=== PATIENT | female | born 1950 | race Hispanic/Latino ===

== ENCOUNTER 2020-11-23 05:30 | Day surgery (SDC) | payer MEDICARE ==
[~2020-11-23] VITALS: Ht 157.5 cm; Wt 66.7 kg
[2020-11-23] VITALS (8 sets, daily range): BP systolic 100–155; BP diastolic 45–70
[2020-11-23] MEDS ORDERED: SODIUM CHLORIDE 0.9% 1000ML 1,000 ML IV ONE (06:19)
[2020-11-23] MEDS ORDERED: PROPOFOL 10 MG/ML 20ML VIAL IV ONE ×2 (06:48→07:33)
[2020-11-23] MEDS ORDERED: LIDOCAINE HCL 1% 20 ML VIAL ONE (06:48)
[2020-11-23] MEDS ORDERED: SUCCINYLCHOLINE 200MG/10ML SYR ONE (06:49)
[2020-11-23] MEDS ORDERED: METF-527 PO (06:52)
[2020-11-23] MEDS ORDERED: CARB15DR2 OP (06:52)
[2020-11-23] MEDS ORDERED: ENAL5TAB17 PO (06:52)
[2020-11-23] MEDS ORDERED: GABA-529 PO (06:52)
[2020-11-23] MEDS ORDERED: GLIM4TAB36 PO (06:52)
[2020-11-23] MEDS ORDERED: OMEP40CA13 PO (06:52)
[2020-11-23] MEDS ORDERED: CANA1TAB8 PO (06:52)
[2020-11-23] MEDS ORDERED: AEC81 PO (06:52)
[2020-11-23] MEDS ORDERED: ATOR20TA65 PO (06:52)
[2020-11-23] MEDS ORDERED: FURO40TA5 PO (06:52)
[2020-11-23] MEDS ORDERED: GLUCAGON 1MG KIT 1 MG ML ONE (07:37)
== END 2020-11-23 08:15 | disposition home or self-care (01) ==
LOC: ENDO 05:30 → DAH 05:30 → ENDO 08:15
PROVIDERS: ATTEND Internal Medicine Gastroenterology
DX: K31.7 Polyp of stomach and duodenum (principal); D12.6 Benign neoplasm of colon, unspecified; R94.5 Abnormal results of liver function studies; K80.20 Calculus of gallbladder without cholecystitis without obstruction; K76.0 Fatty (change of) liver, not elsewhere classified; K44.9 Diaphragmatic hernia without obstruction or gangrene; E11.9 Type 2 diabetes mellitus without complications; K21.9 Gastro-esophageal reflux disease without esophagitis; K29.70 Gastritis, unspecified, without bleeding; E78.00 Pure hypercholesterolemia, unspecified; F41.9 Anxiety disorder, unspecified; F32.9 Major depressive disorder, single episode, unspecified; Z90.710 Acquired absence of both cervix and uterus; Z79.84 Long term (current) use of oral hypoglycemic drugs; Z20.828 Contact with and (suspected) exposure to other viral communicable diseases; Z79.899 Other long term (current) drug therapy
CPT/HCPCS: 43251; 82948 ×2; 93005; A4215; A4221; A4222; A4223; A4606; A4620; A4649; A4663; C9803; J0330; J1610; J2704 ×2; J7030; U0003

== ENCOUNTER 2021-01-11 05:27 | Day surgery (SDC) | payer MEDICARE ==
[~2021-01-11] VITALS: Ht 154.9 cm; Wt 64.9 kg
[~2021-01-11 05:27] MED LIST: AEC81 PO; ATOR20TA65 PO; CANA1TAB8 PO; CARB15DR2 OP; ENAL5TAB17 PO; FURO40TA5 PO; GABA-529 PO; GLIM4TAB36 PO; INSLAN SQ; METF-527 PO; OMEP40CA21 PO; SODIUM CHLORIDE 0.9% 1000ML 1,000 ML IV ONE
[2021-01-11] MEDS ORDERED: SODIUM CHLORIDE 0.9% 1000ML 1,000 ML IV ONE (06:17)
[2021-01-11 06:37] VITALS: BP 145/57
[2021-01-11] MEDS ORDERED: PROPOFOL 10 MG/ML 20ML VIAL IV ONE (07:27)
[2021-01-11] MEDS ORDERED: LIDOCAINE HCL 1% 20 ML VIAL ONE (07:27)
[2021-01-11 08:10] VITALS: BP 126/63
[2021-01-11 08:14] VITALS: BP 129/68
[2021-01-11 08:19] VITALS: BP 128/82
== END 2021-01-11 08:30 | disposition home or self-care (01) ==
LOC: DAH 05:27 → ENDO 05:27
PROVIDERS: ATTEND Internal Medicine Gastroenterology
DX: K21.9 Gastro-esophageal reflux disease without esophagitis (principal); K31.7 Polyp of stomach and duodenum; Z20.822 Contact with and (suspected) exposure to COVID-19; E78.5 Hyperlipidemia, unspecified; F41.9 Anxiety disorder, unspecified; E78.00 Pure hypercholesterolemia, unspecified; E11.9 Type 2 diabetes mellitus without complications; F32.9 Major depressive disorder, single episode, unspecified; Z85.43 Personal history of malignant neoplasm of ovary; Z79.84 Long term (current) use of oral hypoglycemic drugs; Z90.710 Acquired absence of both cervix and uterus; Z98.891 History of uterine scar from previous surgery; Z98.42 Cataract extraction status, left eye; Z98.41 Cataract extraction status, right eye; Z98.890 Other specified postprocedural states; Z72.89 Other problems related to lifestyle; Z79.899 Other long term (current) drug therapy; Z88.8 Allergy status to other drugs, medicaments and biological substances; Z86.010 Personal history of colon polyps
CPT/HCPCS: 43235; 82948 ×2; 87635; A4215 ×2; A4221; A4222; A4223; A4606; A4620; A4657; A4663; C9803; J2704; J7030 ×2

== ENCOUNTER 2021-01-13 06:16 | Day surgery (SDC) | payer MEDICARE ==
[~2021-01-13] VITALS: Ht 154.9 cm; Wt 64.0 kg
[2021-01-13] VITALS (9 sets, daily range): BP systolic 101–146; BP diastolic 49–62
[~2021-01-13 06:16] MED LIST changes: -SODIUM CHLORIDE 0.9% 1000ML 1,000 ML IV ONE
[2021-01-13] MEDS ORDERED: SODIUM CHLORIDE 0.9% 1000ML 1,000 ML IV ONE (08:20)
[2021-01-13] MEDS ORDERED: PROPOFOL 10 MG/ML 20ML VIAL IV ONE ×3 (09:32→10:16)
== END 2021-01-13 11:00 | disposition home or self-care (01) ==
LOC: DAH 06:16 → ENDO 06:16
PROVIDERS: ATTEND Internal Medicine Gastroenterology
DX: D13.1 Benign neoplasm of stomach (principal); K44.9 Diaphragmatic hernia without obstruction or gangrene; K31.89 Other diseases of stomach and duodenum; R19.7 Diarrhea, unspecified; I10 Essential (primary) hypertension; K21.9 Gastro-esophageal reflux disease without esophagitis; E11.9 Type 2 diabetes mellitus without complications; F41.9 Anxiety disorder, unspecified; F32.9 Major depressive disorder, single episode, unspecified; E78.00 Pure hypercholesterolemia, unspecified; Z98.891 History of uterine scar from previous surgery; Z72.89 Other problems related to lifestyle; Z79.84 Long term (current) use of oral hypoglycemic drugs; Z86.010 Personal history of colon polyps; Z98.84 Bariatric surgery status; Z90.710 Acquired absence of both cervix and uterus; Z79.899 Other long term (current) drug therapy
CPT/HCPCS: 43251; 82948 ×2; A4215 ×2; A4221; A4222; A4223; A4606; A4620; A4649; A4657; A4663; J2704 ×3; J7030